=== PATIENT | male | born 1995 | race Caucasian/White ===

== ENCOUNTER 2022-07-08 09:26 | Emergency (ER) | payer MEDICAID ==
[~2022-07-08] VITALS: Ht 177.8 cm; Wt 72.6 kg
[2022-07-08 10:47] LABS: BASOPHILS % (AUTO) 0.4 % (0.0-2.0); EOSINOPHILS % (AUTO) 3.6 % (0.0-6.0); HEMATOCRIT 47 % (39-51); HEMOGLOBIN 15.6 g/dL (13.5-17.5); LYMPHOCYTES # (AUTO) 0.5 K/uL (0.8-4.8); LYMPHOCYTES % (AUTO) 8.6 % (20.0-44.0); MEAN CORPUSCULAR HGB CONC 33 g/dl (31.0-36.0); MEAN CORPUSCULAR VOLUME 91 fL (80-96); MONOCYTES # (AUTO) 0.6 K/uL (0.1-1.30); MONOCYTES % (AUTO) 11.1 % (2.0-12.0); NEUTROPHILS # (AUTO) 4.4 K/uL (1.8-8.9); NEUTROPHILS % (AUTO) 76.3 % (43.0-81.0); PLATELET COUNT (AUTO) 262 K/uL (150-450); RED BLOOD CELL COUNT(AUTO) 5.21 MIL/uL (4.5-6.0); WHITE BLOOD COUNT (AUTO) 5.7 K/uL (4.3-11.0)
[2022-07-08 11:15] LABS: MONOTEST NEGATIVE (NEGATIVE)
[2022-07-08 11:20] LABS: CALCIUM, SERUM 8.9 mg/dL (8.5-10.1); CREATININE 1.1 mg/dL (0.6-1.3); POTASSIUM 4.6 mmol/L (3.5-5.1)
[2022-07-08] MEDS ORDERED: AMOX-430 PO (12:18)
[2022-07-08] MEDS ORDERED: IBUP-1957 PO (12:20)
--- NOTE | 2022-07-08 12:29 | NUR ---
Patient discharged to home in stable condition. Written and verbal after care instructions given. Patient verbalizes understanding of instruction.
[2022-07-08 12:33] VITALS: BP 121/70
== END 2022-07-08 12:33 | disposition home or self-care (01) ==
LOC: ER 09:26
DX: R59.0 Localized enlarged lymph nodes (principal); Z20.822 Contact with and (suspected) exposure to COVID-19
CPT/HCPCS: 99283; 87426; 87804; 85025; 80048; 86308; 36415; C9803; 87070-TC

== ENCOUNTER 2022-07-26 21:24 | Inpatient (IN) | payer MEDICAID ==
[~2022-07-26] VITALS: Ht 180.3 cm; Wt 81.2 kg
[~2022-07-26 21:24] MED LIST: AMOX-430 PO; IBUP-1957 PO
--- NOTE | 2022-07-26 22:26 | NUR ---
BIBSELF FROM HOME C/O SWOLLEN LYMPH NODES ON NECK X1 MONTH. PT A/OX4. TOLERATING R/A WELL WITH NO RESP DISTRESS; RR EVEN AND NON LABORED. SAFETY MEASURES IN PLACE.
[2022-07-26] MEDS ORDERED: IV NS 0.9% 1,000 ML BAG IV ONE (23:00)
[2022-07-26] MEDS ORDERED: KETOROLAC TROMETHAMINE INJ 30 MG/ML VIAL IV ONE (23:00)
[2022-07-26] MEDS ORDERED: KETOROLAC TROMETHAMINE INJ 30 MG/ML VIAL ONE (23:03)
--- NOTE | 2022-07-26 23:17 | NUR ---
IV RAC #18G S/L BLOOD COLLECTED AND SENT TO LAB
--- NOTE | 2022-07-26 23:18 | NUR ---
COVID ANTIGEN SWAB COLLECTED AND SENT TO LAB
[2022-07-26] MEDS ORDERED: IOHEXOL-300 100 ML VIAL IV ONE (23:28)
[2022-07-26] MEDS ORDERED: CT SWABBABLE VALVE TRANS SET 1 EA INFUS.SET MC ONE (23:29)
[2022-07-26] MEDS ORDERED: IV NS 0.9% 250 ML IV ONE (23:29)
--- NOTE | 2022-07-26 23:33 | NUR ---
PT TO CT VIA [facility]
[2022-07-26 23:39] LABS: BASOPHILS % (AUTO) 0.7 % (0.0-2.0); EOSINOPHILS % (AUTO) 3.3 % (0.0-6.0); HEMATOCRIT 46 % (39-51); HEMOGLOBIN 15.4 g/dL (13.5-17.5); LYMPHOCYTES # (AUTO) 0.6 K/uL (0.8-4.8); LYMPHOCYTES % (AUTO) 10.7 % (20.0-44.0); MEAN CORPUSCULAR HGB CONC 33 g/dl (31.0-36.0); MEAN CORPUSCULAR VOLUME 90 fL (80-96); MONOCYTES # (AUTO) 0.6 K/uL (0.1-1.30); MONOCYTES % (AUTO) 11.6 % (2.0-12.0); NEUTROPHILS # (AUTO) 4.1 K/uL (1.8-8.9); NEUTROPHILS % (AUTO) 73.7 % (43.0-81.0); PLATELET COUNT (AUTO) 244 K/uL (150-450); RED BLOOD CELL COUNT(AUTO) 5.15 MIL/uL (4.5-6.0); WHITE BLOOD COUNT (AUTO) 5.5 K/uL (4.3-11.0)
--- NOTE | 2022-07-26 23:46 | NUR ---
PT RETURNED TO ER BED [address] V[address] [facility]
[2022-07-26 23:59] LABS: ALBUMIN 3.1 g/dL (3.4-5.0); BILIRUBIN,DIRECT 0.1 mg/dL (0.0-0.2); BILIRUBIN,TOTAL 0.3 mg/dL (0.2-1.0); CALCIUM, SERUM 8.4 mg/dL (8.5-10.1); CREATININE 1.2 mg/dL (0.6-1.3); TOTAL PROTEIN, SERUM 5.7 g/dL (6.4-8.2)
[2022-07-27] MEDS ORDERED: ONDANSETRON HCL/PF 4 MG/2 ML VIAL IVP PRN (01:00)
[2022-07-27] MEDS ORDERED: ACETAMINOPHEN 325 MG TABLET PO PRN (01:00)
--- NOTE | 2022-07-27 01:56 | NUR ---
REPORT GIVEN TO 3W RN FOR TONYA
[2022-07-27 02:14] VITALS: BP 113/65
--- NOTE | 2022-07-27 02:15 | NUR ---
MS [employer] BI DEVELOPER NOTES RECEIVED PATIENT FROM ER BY WHEELCHAIR AT 0215. PATIENT CONTINENT. AMBULATORY. BRP. PATIENT IS A/O TIMES 4. NO PAIN NOTED. NO SOB NOTED. NO DISTRESS NOTED. ABLE TO MAKE NEEDS KNOWN. ALL NEEDS ATTENDED. NO SKIN ISSUES NOTED. ALL THE BELONGINGS ACCOUNTED AND SIGNED FOR. ALL SAFETY MEASURES IN PLACE. BED LOCKED IN THE LOWEST POSITION. CALL LIGHT AND TABLE IN EASY REACH. SIDE RAILS UP TIMES 2. WILL CONTINUE TO MONITOR CLOSELY.
--- NOTE | 2022-07-27 02:19 | NUR ---
PT TRANFERRED TO 3W 317 VIA HOSPITAL PROTOCOL. VSS. ALL BELONGINGS WITH PT.
--- NOTE | 2022-07-27 06:44 | NUR ---
MS RN CLOSING NOTES PATIENT SLEEPS IN BED. PATIENT IS A/O TIMES 4. PATIENT IS CONTINENT. AMBULATORY. BRP . NO PAIN NOTED. NO SOB NOTED. NO DISTRESS NOTED. ABLE TO MAKE NEEDS KNOWN. ALL NEEDS ATTENDED. NO SKIN ISSUES NOTED. ALL SAFETY MEASURES IN PLACE. BED LOCKED IN THE LOWEST POSITION. CALL LIGHT AND TABLE IN EASY REACH. SIDE RAILS UP TIMES 2. WILL ENDORSE FOR TONYA.
[2022-07-27 07:00] VITALS: BP 117/75
--- NOTE | 2022-07-27 07:30 | NUR ---
MS RN OPENING NOTES RECEIVED PATIENT ON BED, AWAKE AND A/O X4. ON ROOM AIR TOLERATING WELL. NO SOB NOTED. NOT IN DISTRESS. WITH NO COMPLAINTS OF PAIN AT THIS TIME. WITH IV ACCESS AT THE RIGHT AC G18 SALINE LOCKED, PATENT AND INTACT. SAFETY MEASURES IN PLACED. CALL LIGHT WITHIN REACH. BED ON LOWEST LOCKED POSITION, SIDE RAILS UP X2. WILL CONTINUE TO MONITOR.
[2022-07-27] MEDS ORDERED: DOXYCYCLINE 200 MG in IV D5W 250 ML IV SCH (14:00)
[2022-07-27] MEDS ORDERED: DOXYCYCLINE 100 MG in IV D5W 250 ML IV SCH (14:41)
[2022-07-27 15:02] LABS: C-REACTIVE PROTEIN < 0.2 mg/dL (0.0-0.9)
[2022-07-27 16:00] VITALS: BP 118/72
--- NOTE | 2022-07-27 18:20 | NUR ---
MS RN CLOSING NOTES PATIENT ON BED, AWAKE AND A/O X4. ON ROOM AIR TOLERATING WELL. NO SOB NOTED. NOT IN DISTRESS. WITH NO COMPLAINTS OF PAIN AT THIS TIME. WITH IV ACCESS AT THE RIGHT AC G18 SALINE LOCKED, PATENT AND INTACT. SAFETY MEASURES IN PLACED. CALL LIGHT WITHIN REACH. BED ON LOWEST LOCKED POSITION, SIDE RAILS UP X2. WILL ENDORSE TO NEXT SHIFT FOR TONYA.
--- NOTE | 2022-07-27 20:06 | NUR ---
RN OPENING NOTE PATIENT AWAKE IN BED W/ AT BEDSIDE. A/OX4. NO S/S OF DISTRESS, BREATHING WITHOUT DIFFICULTY ON ROOM AIR. RAC #18 SL INTACT AND PATENT. SAFETY MEASURES IN PLACE: BED LOCKED AND AT LOWEST POSITION, RAILS UP X2, CALL PATEL WITHIN REACH. WILL CONTINUE TO MONITOR PATIENT.
--- NOTE | 2022-07-27 20:59 | NUR ---
RN NOTE PATIENT DECIDED TO LEAVE AMA. PATIENT WAS ENCOURAGED TO STAY BUT WAS ADAMANT ABOUT LEAVING. AMA FORM SIGNED BY PATIENT. PATIENT STABLE. NO S/S OF DISTRESS, BREATHING WITHOUT DIFFICULTY ON ROOM AIR. FULLY AMBULATORY. PATIENT LEFT W/ BELONGINGS. ON-CALL PATRICK COUCH, NOTIFIED. PATIENT'S BELONGINGS ACCOUNTED FOR AND SIGNED BY PATIENT. IV ACCESS REMOVED W/ PRESSURE DRESSING APPLIED. ID BAND REMOVED AND DISPOSED OF PER HIPAA PROTOCOL. PATIENT AND WERE ESCORTED DOWNSTAIRS BY FARHAD SALGUERO.
== END 2022-07-27 21:00 | disposition left against medical advice (07) | DRG 691 ==
LOC: ER 21:25 → MED 07-27 01:59
PROVIDERS: ADMIT Nurse Practitioner Acute Care; ATTEND Nurse Practitioner Acute Care
DX: C85.93 Non-Hodgkin lymphoma, unspecified, intra-abdominal lymph nodes (principal); N13.30 Unspecified hydronephrosis; E04.1 Nontoxic single thyroid nodule; Z20.822 Contact with and (suspected) exposure to COVID-19; R21 Rash and other nonspecific skin eruption
CPT/HCPCS: 36415; 70491-TC; 71260-TC; 76536-TC; 80048-TC; 80076-TC; 83615-TC; 85025-TC; 85652-TC; 86140-TC; 86480; 86592; 86593; 87040-TC; 87081-TC; 87806; C9803; G0378; J1885; J3490; J7030; J7050; J7060; Q9967